=== PATIENT | male | born 1965 | race Hispanic/Latino ===

== ENCOUNTER 2018-05-05 09:44 | Outpatient (CLI) | payer BC ==
--- NOTE | 2018-05-05 13:17 | CT ---
BRAIN CT WITHOUT IV CONTRAST: HISTORY: A 53-year-old male with a history of localized swelling, mass, and lump. Swelling of left jaw. Head aches. FINDINGS: No focal mass or midline shift. No intraaxial or extraaxial hemorrhage. Sinuses and mastoids are cl ear of acute process. IMPRESSION: No acute intracranial process. No mass or bleed. POS: [facility]
--- NOTE | 2018-05-05 13:41 | CT ---
CT NECK WITHOUT CONTRAST: HISTORY: Left jaw swelling. COMPARISON: None. TECHNIQUE: A noncontrast neck CT is performed. Reformatted images are submitted for interpretation. FINDINGS: Evaluation is limited by the lack of IV contrast. A marker was placed in the region of interest. Re formatted images are submitted. The visualized brain parenchyma and orbits are unremarkable. Adequate aeration of the visualized mastoid air cells. There is right maxillary sinus mucosal diseas e. The aerodigestive tract is patent. No mucosal abnormality. No obvious masses in the oral cavity. T he midline fatty raphe of the tongue is preserved. The epiglottis has a normal caliber. Preepiglott ic fat is preserved. There is no prevertebral soft tissue swelling. Symmetric attenuation of the parotid and submandibular glands. Symmetric attenuation of the sternocl eidomastoid muscles. Unremarkable thyroid gland. No evidence of lymphadenopathy by size criteria. The central spinal canal and neural foramina are patent. Evaluation limited by technique. Cervical spine vertebral body height is maintained. There is no fracture. The upper mediastinum and lung api hossein are unremarkable. There is appropriate articulation of the cervical spine. No fractures. At the level of the palpable marker, there is a focal area of fat attenuation that is deep to the lef t parotid gland. This area of fat does displace the posterior superficial lobe of the left parotid g land. Coronally, this area of fat measures 3.5 cm and appears to be contiguous with the fat along th e posterior triangle, which is deep to the sternocleidomastoid muscle. Short-axis images demonstrate this area of fat to measure 2.3 x 0.9 cm. 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 Lack of post contrast imaging limits eval uation. If there is concern for a liposarcoma, pre and post contrast soft tissue neck MRI are recomm ended. CODE T POS: [facility]
== END 2018-05-05 09:45 | disposition home or self-care (01) ==
LOC: TBSIIMAG 09:44
PROVIDERS: ATTEND Family Medicine
DX: R22.0 Localized swelling, mass and lump, head (principal); R22.1 Localized swelling, mass and lump, neck
CPT/HCPCS: 70450; 70490

== ENCOUNTER 2019-06-15 13:15 | Emergency (ER) | payer BC ==
--- NOTE | 2019-06-15 14:40 | RAD ---
AP PELVIS: Date: 06/15/19 HISTORY: Fall. Hip pain. FINDINGS: Pelvis appears intact. Both hips appear intact. No acute osseous abnormality identified. IMPRESSION: No evidence of fracture. POS: [facility]
== END 2019-06-15 15:04 | disposition left against medical advice (07) ==
LOC: ERS 13:15
DX: Z53.21 Procedure and treatment not carried out due to patient leaving prior to being seen by health care provider (principal)
CPT/HCPCS: 72170

== ENCOUNTER 2019-06-15 15:09 | Emergency (ER) | payer BC ==
[2019-06-15] MEDS ORDERED: HYDROcodone/Acetaminophen 5/325 mg Tablet ONE (15:59)
--- NOTE | 2019-06-15 16:20 | RAD ---
XR Elbow Lt 4 View STANDARD History: Injury Comparison: None. Findings: No acute fracture or malalignment. No significant joint effusion. Impression: No acute osseous abnormality.
== END 2019-06-15 16:58 | disposition home or self-care (01) ==
LOC: SCSER 15:09
DX: S39.011A Strain of muscle, fascia and tendon of abdomen, initial encounter (principal); S46.212A Strain of muscle, fascia and tendon of other parts of biceps, left arm, initial encounter; I10 Essential (primary) hypertension; F41.9 Anxiety disorder, unspecified; Z79.899 Other long term (current) drug therapy; W18.30XA Fall on same level, unspecified, initial encounter
CPT/HCPCS: 72170